=== PATIENT | female | born 1950 | race Caucasian/White ===

== ENCOUNTER 2023-11-14 06:12 | Day surgery (SDC) | payer MEDICARE, OTHER, SELFPAY ==
[2023-11-14 13:19] VITALS: BMI 23.4
[2023-11-14 13:20] VITALS: BMI 23.4
[2023-11-14 13:21] VITALS: BP 149/86
[2023-11-14 14:45] VITALS: BP 114/67
[2023-11-14 15:00] VITALS: BP 127/78
== END 2023-11-14 15:30 | disposition home or self-care (01) ==
LOC: GI 06:12
PROVIDERS: ATTENDING PHYSICIAN Internal Medicine Gastroenterology
DX: K86.2 Cyst of pancreas (principal); D13.6 Benign neoplasm of pancreas; K22.89 Other specified disease of esophagus; K31.89 Other diseases of stomach and duodenum; K25.9 Gastric ulcer, unspecified as acute or chronic, without hemorrhage or perforation; K76.89 Other specified diseases of liver; K29.50 Unspecified chronic gastritis without bleeding
CPT/HCPCS: 43238; 43239; 88305; 88112; 88342

== ENCOUNTER → 2024-05-21 14:15 | Outpatient (REF) | payer MEDICARE, OTHER, SELFPAY | LOC: WDC 14:15 | PROVIDERS: ATTENDING PHYSICIAN Family Medicine | DX: Z12.31 Encounter for screening mammogram for malignant neoplasm of breast (principal) | CPT/HCPCS: 77063; 77067 ==

== ENCOUNTER → 2024-05-28 07:37 | Outpatient (REF) | payer MEDICARE, OTHER, SELFPAY ==
[2024-05-28 11:01] LABS: ALT (SGPT) 38 U/L (0-35); AST (SGOT) 36 U/L (14-36); Albumin 4.2 g/dl (3.5-5.0); Alkaline Phosphatase 63 U/L (38-126); Blood Urea Nitrogen 27 mg/dl (7-17); Calcium 9.8 mg/dl (8.4-10.2); Carbon Dioxide 26 mmol/L (22-30); Chloride 102 mmol/L (98-107); Glucose 89 mg/dl (70-99); HDL Cholesterol 83 mg/dl; LDL Cholesterol, Calculated 89 mg/dl; Potassium 4.5 mmol/L (3.5-5.1); Sodium 140 mmol/L (135-145); Total Bilirubin 0.5 mg/dl (0.2-1.3); Total Cholesterol 187 mg/dl (50-199); Total Protein 6.6 g/dl (6.3-8.2); Triglyceride 79 mg/dl (10-149); Very Low Density Lipoprotein 15 mg/dl (0-30); eGFR > 60.00
== END ==
LOC: RAD 07:37
PROVIDERS: ATTENDING PHYSICIAN Family Medicine
DX: N28.1 Cyst of kidney, acquired (principal); E78.2 Mixed hyperlipidemia; R79.89 Other specified abnormal findings of blood chemistry
CPT/HCPCS: 36415; 76770; 80053; 80061; 84155; 84165

== ENCOUNTER → 2024-06-25 09:59 | Outpatient (REF) | payer MEDICARE, OTHER, SELFPAY ==
[2024-06-25 12:23] LABS: Free T4 1.53 ng/dl (0.78-2.19)
[2024-06-25 12:36] LABS: TSH 0.62 uIU/ml (0.47-4.68)
[2024-06-27 02:44] LABS: Total T3 (Sendout) 111 ng/dL (80-200)
== END ==
LOC: RAD 09:59
PROVIDERS: ATTENDING PHYSICIAN Internal Medicine Endocrinology, Diabetes & Metabolism; FAMILY PHYSICIAN Family Medicine
DX: E03.9 Hypothyroidism, unspecified (principal); E04.2 Nontoxic multinodular goiter
CPT/HCPCS: 36415; 76536; 84439; 84443; 84480; 84481

== ENCOUNTER → 2024-07-16 10:07 | Outpatient (REF) | payer MEDICARE, OTHER, SELFPAY | LOC: RAD 10:07 | PROVIDERS: ATTENDING PHYSICIAN Internal Medicine Gastroenterology; FAMILY PHYSICIAN Family Medicine | DX: K86.2 Cyst of pancreas (principal) | CPT/HCPCS: 74170; Q9967 ==

== ENCOUNTER 2024-07-29 06:25 | Day surgery (SDC) | payer MEDICARE, OTHER, SELFPAY | END 2024-07-29 08:47 | disposition home or self-care (01) | LOC: GI 06:25 | PROVIDERS: ATTENDING PHYSICIAN Internal Medicine | DX: Z12.11 Encounter for screening for malignant neoplasm of colon (principal); D12.2 Benign neoplasm of ascending colon; D12.3 Benign neoplasm of transverse colon; K57.30 Diverticulosis of large intestine without perforation or abscess without bleeding; K64.9 Unspecified hemorrhoids; Z86.0101 Personal history of adenomatous and serrated colon polyps; Z98.890 Other specified postprocedural states; Z79.01 Long term (current) use of anticoagulants | CPT/HCPCS: 45385; 88305 ==

== ENCOUNTER 2024-09-30 06:16 | Day surgery (SDC) | payer MEDICARE, OTHER, SELFPAY ==
[2024-09-30 09:43] VITALS: BMI 23.5
[2024-09-30 09:54] VITALS: BP 146/91
[2024-09-30 12:03] VITALS: BP 113/72
[2024-09-30 12:15] VITALS: BP 112/75
[2024-09-30 12:30] VITALS: BP 127/61
== END 2024-09-30 12:45 | disposition home or self-care (01) ==
LOC: SDS 06:16
PROVIDERS: ATTENDING PHYSICIAN Internal Medicine Gastroenterology
DX: D12.2 Benign neoplasm of ascending colon (principal); D12.5 Benign neoplasm of sigmoid colon; K64.0 First degree hemorrhoids; Z79.01 Long term (current) use of anticoagulants
CPT/HCPCS: 45390; 45385; 88305

== ENCOUNTER → 2025-01-11 11:48 | Outpatient (REF) | payer MEDICARE, OTHER, SELFPAY ==
[2025-01-11 13:39] LABS: ALT (SGPT) 24 U/L (0-35); AST (SGOT) 29 U/L (14-36); Albumin 4.2 g/dl (3.5-5.0); Alkaline Phosphatase 60 U/L (38-126); Blood Urea Nitrogen 21 mg/dl (7-17); Calcium 9.5 mg/dl (8.4-10.2); Carbon Dioxide 28 mmol/L (22-30); Chloride 107 mmol/L (98-107); Glucose 97 mg/dl (70-99); HDL Cholesterol 92 mg/dl; LDL Cholesterol, Calculated 58 mg/dl; Potassium 4.3 mmol/L (3.5-5.1); Sodium 144 mmol/L (135-145); Total Bilirubin 0.4 mg/dl (0.2-1.3); Total Cholesterol 165 mg/dl (50-199); Total Protein 6.7 g/dl (6.3-8.2); Triglyceride 75 mg/dl (10-149); Very Low Density Lipoprotein 15 mg/dl (0-30); eGFR > 60.00
[2025-01-11 13:59] LABS: Vitamin D, 25-OH*** 48.9 ng/mL (30-80)
== END ==
LOC: REG 11:48
PROVIDERS: ATTENDING PHYSICIAN Internal Medicine Rheumatology; FAMILY PHYSICIAN Family Medicine
DX: E55.9 Vitamin D deficiency, unspecified (principal); E83.52 Hypercalcemia; M19.041 Primary osteoarthritis, right hand; M81.0 Age-related osteoporosis without current pathological fracture; Z79.899 Other long term (current) drug therapy; E78.5 Hyperlipidemia, unspecified; R74.01 Elevation of levels of liver transaminase levels; R79.9 Abnormal finding of blood chemistry, unspecified
CPT/HCPCS: 36415; 80053; 80061; 82306

== ENCOUNTER → 2025-06-07 14:27 | Outpatient (REF) | payer MEDICARE, OTHER, SELFPAY ==
[2025-06-07 16:52] LABS: Blood Urea Nitrogen 19 mg/dl (7-17); Calcium 8.8 mg/dl (8.4-10.2); Carbon Dioxide 26 mmol/L (22-30); Chloride 102 mmol/L (98-107); Glucose 87 mg/dl (70-99); Potassium 3.9 mmol/L (3.5-5.1); Sodium 136 mmol/L (135-145); eGFR > 60.00
== END ==
LOC: RAD 14:27
PROVIDERS: ATTENDING PHYSICIAN Internal Medicine Endocrinology, Diabetes & Metabolism; FAMILY PHYSICIAN Family Medicine; OTHER PHYSICIAN Physician Assistant Medical
DX: R10.9 Unspecified abdominal pain (principal); R11.0 Nausea; N20.0 Calculus of kidney; E04.2 Nontoxic multinodular goiter
CPT/HCPCS: 36415; 76536; 80048

== ENCOUNTER → 2025-06-08 08:13 | Outpatient (REF) | payer MEDICARE, OTHER, SELFPAY | LOC: HWRAD 08:13 | PROVIDERS: ATTENDING PHYSICIAN Physician Assistant Medical; FAMILY PHYSICIAN Family Medicine | DX: R10.9 Unspecified abdominal pain (principal); R11.0 Nausea; N20.2 Calculus of kidney with calculus of ureter | CPT/HCPCS: 74176 ==

== ENCOUNTER 2025-06-15 06:07 | Day surgery (SDC) | payer MEDICARE, OTHER, SELFPAY ==
[2025-06-15] VITALS (9 sets, daily range): BP systolic 123–143; BP diastolic 68–83; BMI 22.0
[2025-06-15 07:40] LABS: Hematocrit 36.0 % (37.0-47.0); Hemoglobin 11.9 g/dL (12.0-16.0); Mean Corp Hgb Conc. 33.1 g/dL (33.0-37.0); Mean Corpuscular Volume 90.7 fL (81.0-99.0); Platelet Count 327 10^3/uL (130-400); Red Cell Dist. Width 14.5 % (11.5-14.5)
[2025-06-19 17:55] LABS: Stone Analysis Mass 80 mg
== END 2025-06-15 10:20 | disposition home or self-care (01) ==
LOC: SDS 06:07
PROVIDERS: Urology; ATTENDING PHYSICIAN Specialist
DX: N20.2 Calculus of kidney with calculus of ureter (principal)
CPT/HCPCS: 52356; 74018; 76000; 82365; 85027; A4300; C1894; C2617

== ENCOUNTER → 2025-06-28 09:51 | Outpatient (REF) | payer MEDICARE, OTHER, SELFPAY ==
[2025-06-28 11:54] LABS: ALT (SGPT) 23 U/L (0-35); AST (SGOT) 26 U/L (14-36); Albumin 4.0 g/dl (3.5-5.0); Alkaline Phosphatase 63 U/L (38-126); Blood Urea Nitrogen 21 mg/dl (7-17); Calcium 9.3 mg/dl (8.4-10.2); Carbon Dioxide 29 mmol/L (22-30); Chloride 109 mmol/L (98-107); Glucose 102 mg/dl (70-99); HDL Cholesterol 81 mg/dl; LDL Cholesterol, Calculated 112 mg/dl; Sodium 143 mmol/L (135-145); Total Protein 6.8 g/dl (6.3-8.2); Very Low Density Lipoprotein 15 mg/dl (0-30); eGFR > 60.00
[2025-06-28 11:59] LABS: Free T3 3.45 pg/ml (2.77-5.27); Vitamin D, 25-OH*** 51.2 ng/mL (30-80)
[2025-06-28 12:06] LABS: Potassium 4.3 mmol/L (3.5-5.1)
[2025-06-28 12:08] LABS: Glycohemoglobin (HgbA1c) 5.8 % (4.0-5.6)
[2025-06-28 12:13] LABS: TSH 0.14 uIU/ml (0.47-4.68)
== END ==
LOC: REG 09:51
PROVIDERS: ATTENDING PHYSICIAN Internal Medicine Endocrinology, Diabetes & Metabolism
DX: E03.9 Hypothyroidism, unspecified (principal); E55.9 Vitamin D deficiency, unspecified; R73.03 Prediabetes; E78.5 Hyperlipidemia, unspecified; R74.01 Elevation of levels of liver transaminase levels; R53.83 Other fatigue
CPT/HCPCS: 36415; 80053; 80061; 82306; 83036; 84439; 84443; 84481; 86376

== ENCOUNTER → 2025-07-09 10:55 | Outpatient (REF) | payer MEDICARE, OTHER, SELFPAY | LOC: RAD 10:55 | PROVIDERS: ATTENDING PHYSICIAN Internal Medicine Rheumatology; FAMILY PHYSICIAN Family Medicine | DX: M81.0 Age-related osteoporosis without current pathological fracture (principal) | CPT/HCPCS: 77080 ==

== ENCOUNTER → 2025-07-26 09:43 | Outpatient (REF) | payer MEDICARE, OTHER, SELFPAY ==
[2025-07-26 10:44] LABS: Hematocrit 40.3 % (37.0-47.0); Hemoglobin 13.0 g/dL (12.0-16.0); Mean Corp Hgb Conc. 32.3 g/dL (33.0-37.0); Mean Corpuscular Volume 91.4 fL (81.0-99.0); Nucleated Red Blood Cells % 0 %; Platelet Count 238 10^3/uL (130-400); Red Cell Dist. Width 13.9 % (11.5-14.5)
[2025-07-26 11:57] LABS: ALT (SGPT) 21 U/L (0-35); AST (SGOT) 27 U/L (14-36); Albumin 4.3 g/dl (3.5-5.0); Alkaline Phosphatase 52 U/L (38-126); Blood Urea Nitrogen 23 mg/dl (7-17); Calcium 9.6 mg/dl (8.4-10.2); Carbon Dioxide 30 mmol/L (22-30); Chloride 106 mmol/L (98-107); Glucose 100 mg/dl (70-99); HDL Cholesterol 95 mg/dl; LDL Cholesterol, Calculated 131 mg/dl; Potassium 4.4 mmol/L (3.5-5.1); Sodium 141 mmol/L (135-145); Total Protein 7.0 g/dl (6.3-8.2); Very Low Density Lipoprotein 16 mg/dl (0-30); eGFR > 60.00
[2025-07-26 13:13] LABS: TSH 0.40 uIU/ml (0.47-4.68)
== END ==
LOC: RCS 09:43
PROVIDERS: ATTENDING PHYSICIAN Internal Medicine Cardiovascular Disease; FAMILY PHYSICIAN Family Medicine; OTHER PHYSICIAN Internal Medicine Rheumatology
DX: I48.0 Paroxysmal atrial fibrillation (principal); I42.9 Cardiomyopathy, unspecified; E78.2 Mixed hyperlipidemia
CPT/HCPCS: 36415; 80053; 80061; 84443; 85025; 93306

== ENCOUNTER → 2025-08-16 11:48 | Outpatient (REF) | payer MEDICARE, OTHER, SELFPAY ==
[2025-08-16 16:38] LABS: Urine Character Slightly Cloudy (Clear)
[2025-08-16 19:33] LABS: Urine White Cell 60-70 /HPF (0-5)
== END ==
LOC: CLAB 11:48
PROVIDERS: ATTENDING PHYSICIAN Family Medicine
DX: R82.90 Unspecified abnormal findings in urine (principal)
CPT/HCPCS: 81003; 81015; 87077; 87086; 87186